=== PATIENT | female | born 1940 | race Caucasian/White ===

== ENCOUNTER 2016-09-10 16:58 | Emergency (ER) | payer MEDICARE, OTHER ==
[~2016-09-10] VITALS: Ht 170.2 cm; Wt 88.0 kg
[~2016-09-10 16:58] MED LIST: ALPR2TAB3 PO; CARV6.252 PO; ENOX80P SQ; FURO1TAB93 PO; GABA300C3 PO; GLYB2.5T3 PO; LEVA250T PO; LOSA100T PO; POTA-243 PO; WARF-60 PO; Z.0.OXYGEN INH
[2016-09-10 17:01] VITALS: BP 183/98; PULSE 85; RESP 18; TEMP 97.6; O2SAT 95
[2016-09-10] MEDS ORDERED: ZOCO40TA PO (17:30)
[2016-09-10] MEDS ORDERED: CALC0.25 PO (17:30)
[2016-09-10] MEDS ORDERED: METF500T PO (17:30)
[2016-09-10] MEDS ORDERED: VITA2000 PO (17:30)
[2016-09-10] MEDS ORDERED: GLYB5TAB3 PO (17:30)
[2016-09-10] MEDS ORDERED: ALLO300T2 PO (17:30)
[2016-09-10] MEDS ORDERED: FURO40TA PO (17:30)
[2016-09-10] MEDS ORDERED: WARF-60 PO (17:30)
[2016-09-10] MEDS ORDERED: LOSA50TA PO (17:30)
[2016-09-10] MEDS ORDERED: CARV12.52 PO (17:30)
[2016-09-10] MEDS ORDERED: WARF-23 PO (17:30)
[2016-09-10] MEDS ORDERED: LISI40TA PO (17:30)
[2016-09-10] MEDS ORDERED: K-TA10TA PO (17:30)
--- NOTE | 2016-09-10 17:55 | RADHPO ---
EXAM DATE/TIME: 09/10/2016 17:44 [facility] COMPARISON: No previous studies available for comparison. INDICATIONS : Patient states no known injury. Swelling across knuckles and posterior aspect of right hand. Pain in entire third digit. MEDICAL HISTORY : Chronic obstructive pulmonary disease. SURGICAL HISTORY : Pacemaker. Valve replacement ENCOUNTER: Initial ACUITY: 1 week PAIN SCORE: 10/10 LOCATION: Right Hand, Third digit. FINDINGS: There are degenerative arthritic changes involving the interphalangeal joints and to a less severe de gree involving the thumb carpal joint. There is soft tissue swelling involving the dorsum of the hand . No definite evidence of fracture, dislocation or bony destruction. CONCLUSION: Soft tissue swelling or arthritic changes. No definite acute bony process. Chris Lozada MD on September 10, 2016 at 17:52 Board Certified Radiologist. This report was verified electronically.
--- NOTE | 2016-09-10 17:58 | PD ---
HPI Chief Complaint: Pain: Acute or Chronic Time Seen by Provider: 17:25 Travel History International Travel<30 days: No Contact w/Intl Traveler<30days: No Traveled to known affect area: No History of Present Illness HPI 76-year-old female presents emergency department for evaluation of right hand pain and swelling. She reports that 6 days ago she woke up and noticed that her third IP joint was painful and swollen she reports the pain and swelling then progressed to the dorsal aspect of the hand. She denies injury to the extremity. She reports that her doctor's office put her on allopurinol for a presumed gouty attack. She reports that the pain and swelling has increased since Wednesday. She denies fever, chills, sweating, nausea/vomiting. PFSH Past Medical History Narrative Medical Significant for atrial fib on Coumadin, CHF, COPD, diabetes, hypertension Atrial Fibrillation: Yes Anxiety: Yes Heart Rhythm Problems: Yes Cardiovascular Problems: Yes Congestive Heart Failure: Yes COPD: Yes Diabetes: Yes Patient Takes Glucophage: Yes Diminished Hearing: No Immunizations Current: Yes Tetanus Vaccination: Unknown Influenza Vaccination: Yes ?: Not Menopausal: Yes Past Surgical History Cardiac Surgery: Yes (ABLATION PACEMAKER) Social History Alcohol Use: No Tobacco Use: No Substance Use: No Allergies-Medications (Allergen,Severity, Reaction): Uncoded Allergies: STEROIDS (Adverse Reaction, Unknown, 12/22/15) CRYING Reported Meds & Prescriptions Reported Meds & Active Scripts Active Reported Losartan (Losartan Potassium) 50 Mg Tab 50 Mg PO DAILY Carvedilol 12.5 Mg Tab 12.5 Mg PO BID Zocor (Simvastatin) 40 Mg Tab 40 Mg PO DAILY Warfarin 5 Mg Tab 5 Mg PO ,, Warfarin 6 Mg Tab 6 Mg PO ,,WED, Furosemide 40 Mg Tab 40 Mg PO DAILY Lisinopril 40 Mg Tab 40 Mg PO DAILY Metformin (Metformin HCl) 500 Mg Tab 500 Mg PO BIDPC With meals Glyburide 5 Mg Tab 5 Mg PO DAILY Take with meals at the same time each day Vitamin D3 (Cholecalciferol) 2,000 Unit Cap 2,000 Units PO DAILY Calcitriol 0.25 Mcg Cap 0.25 Mcg PO DAILY K-Tab (Potassium Chloride) 10 Meq Tab 10 Meq PO BID Allopurinol 300 Mg Tab 300 Mg PO DAILY Review of Systems Except as stated in HPI: all other systems reviewed are Neg Physical Exam Narrative GENERAL: Alert, well-nourished, well-appearing elderly female SKIN: Focused skin assessment warm/dry. HEAD: Atraumatic. Normocephalic. EYES: Pupils equal and round. No scleral icterus. No injection or drainage. ENT: No nasal bleeding or discharge. Mucous membranes pink and moist. NECK: Trachea midline. No JVD. CARDIOVASCULAR: Regular rate and rhythm. No murmur appreciated. RESPIRATORY: No accessory muscle use. Clear to auscultation. Breath sounds equal bilaterally. GASTROINTESTINAL: Abdomen soft, non-tender, nondistended. Hepatic and splenic margins not palpable. MUSCULOSKELETAL: No obvious deformities. No clubbing. No cyanosis. No edema. EXTREMITIES: Right hand: Notable soft tissue swelling the dorsal aspect of the right hand over the MCP joints mild erythema. Notable swelling and erythema of the third IP joint. NEUROLOGICAL: Awake and alert. No obvious cranial nerve deficits. Motor grossly within normal limits. Normal speech. PSYCHIATRIC: Appropriate mood and affect; insight and judgment normal. Data Data Last Documented VS Vital Signs Date Time Temp Pulse Resp B/P Pulse Ox O2 Delivery O2 Flow Rate FiO2 09/10/16 17:01 97.6 85 18 183/98 95 Orders Hand, Complete ([id number]) (09/10/16 ) Basic Metabolic Panel (Bmp) (09/10/16 18:19) Complete Blood Count With Diff (09/10/16 18:19) Blood Culture (09/10/16 18:19) Iv Access Insert/Monitor (09/10/16 18:19) Uric Acid (09/10/16 18:19) Labs Laboratory Tests Test 09/10/16 19:05 White Blood Count 8.2 TH/MM3 Red Blood Count 3.97 MIL/MM3 Hemoglobin 11.4 GM/DL Hematocrit 34.5 % Mean Corpuscular Volume 86.9 FL Mean Corpuscular Hemoglobin 28.8 PG Mean Corpuscular Hemoglobin 33.1 % Concent Red Cell Distribution Width 14.2 % Platelet Count 211 TH/MM3 Mean Platelet Volume 8.2 FL Neutrophils (%) (Auto) 52.3 % Lymphocytes (%) (Auto) 29.8 % Monocytes (%) (Auto) 9.8 % Eosinophils (%) (Auto) 7.4 % Basophils (%) (Auto) 0.7 % Neutrophils # (Auto) 4.3 TH/MM3 Lymphocytes # (Auto) 2.4 TH/MM3 Monocytes # (Auto) 0.8 TH/MM3 Eosinophils # (Auto) 0.6 TH/MM3 Basophils # (Auto) 0.1 TH/MM3 CBC Comment DIFF FINAL Differential Comment Sodium Level 144 MEQ/L Potassium Level 4.2 MEQ/L Chloride Level 108 MEQ/L Carbon Dioxide Level 27.3 MEQ/L Anion Gap 9 MEQ/L Blood Urea Nitrogen 30 MG/DL Creatinine 1.50 MG/DL Estimat Glomerular Filtration 34 ML/MIN Rate Random Glucose 124 MG/DL Calcium Level 8.8 MG/DL MDM Medical Decision Making Medical Screen Exam Complete: Yes Emergency Medical Condition: Yes Medical Record Reviewed: Yes Differential Diagnosis Gout, pseudogout, septic arthritis Narrative Course 76-year-old female presents emergency department for evaluation of right hand pain and swelling. She reports that 6 days ago she noticed pain and swelling of her right third IP joint. She denies any injury. Since that time the pain and swelling has increased despite being started on allopurinol by her PCP 4 days ago. She denies fever, chills, sweats. IV established, labs pending, x- ray pending. X-ray of left hand: No acute fracture/dislocation/foreign body. Arthritic changes noted. CBC: WBCs 8.2 BMP: Glucose 124, creatinine 1.5 this level is down from 1.9 on 12/23/15 known history of chronic kidney disease Given the patient's labs and absence of fever or other signs of systemic infection is believed that this is gout and not an infectious process. Patient is allergic to steroids and unable to take NSAIDs due to chronic kidney disease therefore patient will be instructed to discontinue allopurinol and given prescription for Ultram. She is to follow-up with her primary doctor for recheck in one to 2 days. Return to the emergency department if she develops new or worsening symptoms. Patient agreement to plan. Diagnosis Primary Impression: Gout Qualified Code: M10.9 - Acute gout of right hand, unspecified cause Referrals: Primary Care Physician Patient Instructions: General Instructions, Gout (ED) Additional Instructions: Take the Ultram as needed for pain. Discontinue the allopurinol. Make an appointment for follow-up with her doctor in 1-2 days. Turn to the emergency department a few develop new or worsening symptoms. Scripts Tramadol (Ultram)50 Mg Tab50 Mg PO Q6H PRN (PAIN) #12 TAB Ref 0 Prov:Aylin Lorenzo 09/10/16 Disposition: 01 DISCHARGE HOME Condition: Stable Aylin Lorenzo Sep 10, 2016 17:58
[2016-09-10 19:18] LABS: AUTOMATED NEUTROPHIL # 4.3 TH/MM3 (1.8-7.7); BASOPHIL # 0.1 TH/MM3 (0-0.2); BASOPHIL % 0.7 % (0.0-2.0); EOSINOPHIL # 0.6 TH/MM3 (0-0.4); EOSINOPHIL % 7.4 % (0.0-4.0); HEMATOCRIT 34.5 % (35.0-46.0); HEMO FLAGS DIFF FINAL; LYMPH % 29.8 % (9.0-44.0); LYMPHOCYTE # 2.4 TH/MM3 (1.0-4.8); MEAN CELL VOLUME 86.9 FL (80.0-100.0); MEAN CORPUSCULAR HEMOGLOBIN 28.8 PG (27.0-34.0); MEAN CORPUSCULAR HGB CONC 33.1 % (32.0-36.0); MONO % 9.8 % (0.0-8.0); NEUT % 52.3 % (16.0-70.0); PLATELET COUNT 211 TH/MM3 (150-450); RED BLOOD COUNT 3.97 MIL/MM3 (4.00-5.30); RED CELL DISTRIBUTION WIDTH 14.2 % (11.6-17.2); WHITE BLOOD COUNT 8.2 TH/MM3 (4.0-11.0)
[2016-09-10 19:27] LABS: POTASSIUM 4.2 MEQ/L (3.5-5.1)
[2016-09-10 19:30] LABS: BICARBONATE 27.3 MEQ/L (21.0-32.0)
[2016-09-10] MEDS ORDERED: ULTR50TA5 PO (19:55)
[2016-09-10 20:30] LABS: URIC ACID 6.3 MG/DL (2.6-6.0)
== END 2016-09-10 20:15 | disposition home or self-care (01) ==
LOC: PHEFT 16:58
DX: M10.9 Gout, unspecified (principal); I10 Essential (primary) hypertension; I50.9 Heart failure, unspecified; E11.9 Type 2 diabetes mellitus without complications; Z79.84 Long term (current) use of oral hypoglycemic drugs
CPT/HCPCS: 73130; 80048; 84550; 85025; 87040; 99284

== ENCOUNTER 2017-01-16 21:48 | Inpatient (IN) | payer OTHER, MEDICARE ==
[~2017-01-16] VITALS: Ht 167.6 cm; Wt 89.4 kg
[2017-01-16 21:15] VITALS: PULSE 94
[~2017-01-16 21:48] MED LIST changes: -ALPR2TAB3 PO; +CALC0.25 PO; +CARV12.5 PO; -CARV6.252 PO; +COZA50TA PO; -ENOX80P SQ; -FURO1TAB93 PO; -GABA300C3 PO; -GLYB2.5T3 PO; +GLYB5TAB3 PO; +HYDR-3800 PO; -LEVA250T PO; -LOSA100T PO; +METF500T PO; -POTA-243 PO; +VITA2000 PO; +WARF-23 PO; -Z.0.OXYGEN INH; +ZOCO40TA PO
[2017-01-16 21:55] VITALS: BP 163/72; PULSE 87; RESP 20; TEMP 98.8; O2SAT 93
[2017-01-16 23:10] VITALS: BP 147/71; PULSE 88; RESP 18; O2SAT 92
[2017-01-16] MEDS ORDERED: FURO20TA PO (23:18)
[2017-01-16] MEDS ORDERED: POTA10CA PO (23:18)
[2017-01-16] MEDS ORDERED: SODIUM CHLOR 0.9% 1000 ML INJ 1,000 ML IV SCH (23:37)
[2017-01-16] MEDS ORDERED: ONDANSETRON HCL 4 MG/2 ML VIAL IVP ONE (23:45)
[2017-01-16] MEDS ORDERED: SODIUM CHLORIDE 0.9% FLUSH 10 ML FLUSH IV FLUSH PRN (23:45)
--- NOTE | 2017-01-16 23:51 | PD ---
HPI Chief Complaint: GI Complaint Time Seen by Provider: 23:37 Travel History International Travel<30 days: No Contact w/Intl Traveler<30days: No Traveled to known affect area: No History of Present Illness HPI The patient is a 77-year-old female that complains of nausea, vomiting and diarrhea this evening. She also has some slight bilateral lower quadrant abdominal pain. The patient states she still has her appendix and gallbladder. She also states she had a fever today of 99.8. She takes Coumadin for atrial fibrillation. PFSH Past Medical History Hx Anticoagulant Therapy: Yes Atrial Fibrillation: Yes Anxiety: Yes Heart Rhythm Problems: Yes Congestive Heart Failure: Yes COPD: Yes Diabetes: Yes Patient Takes Glucophage: No Diminished Hearing: No Hypertension: Yes Respiratory: Yes (COPD) Immunizations Current: Yes Menopausal: Yes Past Surgical History Cardiac Surgery: Yes (ABLATION PACEMAKER) Coronary Artery Bypass Graft: Yes Pacemaker: Yes Valve Replacement: Yes Social History Alcohol Use: No Tobacco Use: No Substance Use: No Allergies-Medications (Allergen,Severity, Reaction): Uncoded Allergies: STEROIDS (Adverse Reaction, Unknown, 12/22/15) CRYING Reported Meds & Prescriptions Reported Meds & Active Scripts Active Cozaar (Losartan Potassium) 50 Mg Tab 100 Mg PO DAILY Hydralazine HCl 50 Mg Tablet 50 Mg PO Q6HR Coreg (Carvedilol) 12.5 Mg Tab 25 Mg PO BID Reported Potassium Chloride ER (Potassium Chloride) 10 Meq Cap 10 Meq PO DAILY Furosemide 20 Mg Tab 20 Mg PO DAILY Zocor (Simvastatin) 40 Mg Tab 40 Mg PO DAILY Warfarin 5 Mg Tab 5 Mg PO ,, Warfarin 6 Mg Tab 6 Mg PO W,,WED, Metformin (Metformin HCl) 500 Mg Tab 500 Mg PO BIDPC With meals Glyburide 5 Mg Tab 5 Mg PO DAILY Take with meals at the same time each day Vitamin D3 (Cholecalciferol) 2,000 Unit Cap 2,000 Units PO DAILY Calcitriol 0.25 Mcg Cap 0.25 Mcg PO DAILY Review of Systems Except as stated in HPI: all other systems reviewed are Neg Physical Exam Narrative GENERAL: The patient is alert, oriented 3 and slight apparent distress with her abdominal discomfort. Her vital signs show blood pressure 147/71 and oximetry 92% but otherwise normal. SKIN: Focused skin assessment warm/dry. HEAD: Atraumatic. Normocephalic. EYES: Pupils equal and round. No scleral icterus. No injection or drainage. ENT: No nasal bleeding or discharge. Mucous membranes pink and moist. NECK: Trachea midline. No JVD. CARDIOVASCULAR: Regular rate and rhythm. No murmur appreciated. RESPIRATORY: No accessory muscle use. Clear to auscultation. Breath sounds equal bilaterally. GASTROINTESTINAL: Abdomen soft, with slight discomfort to direct palpation in the midline epigastrium and bilateral lower quadrants. The abdomen is nondistended. Hepatic and splenic margins not palpable. No guarding or rebound is present. MUSCULOSKELETAL: No obvious deformities. No clubbing. No cyanosis. No edema. NEUROLOGICAL: Awake and alert. No obvious cranial nerve deficits. Motor grossly within normal limits. Normal speech. PSYCHIATRIC: Appropriate mood and affect; insight and judgment normal. Data Data Last Documented VS Vital Signs Date Time Temp Pulse Resp B/P (MAP) Pulse Ox O2 Delivery O2 Flow Rate FiO2 01/17/17 02:27 75 16 121/62 (81) 95 Room Air 01/16/17 21:55 98.8 Orders Orders Complete Blood Count With Diff (01/16/17 23:37) Comprehensive Metabolic Panel (01/16/17 23:37) Lipase (01/16/17 23:37) Urinalysis - C+S If Indicated (01/16/17 23:37) Iv Access Insert/Monitor (01/16/17 23:37) Ecg Monitoring (01/16/17 23:37) Oximetry (01/16/17 23:37) Ondansetron Inj (Zofran Inj) (01/16/17 23:45) Sodium Chlor 0.9% 1000 Ml Inj (Ns 1000 M (01/16/17 23:37) Sodium Chloride 0.9% Flush (Ns Flush) (01/16/17 23:45) Prothrombin Time / Inr (Pt) (01/16/17 23:37) Act Partial Throm Time (Ptt) (01/16/17 23:37) Urine Culture (01/17/17 00:05) Ct Abd/Pel W/O Iv Contrast (01/17/17 01:46) Levofloxacin 500 Mg Premix Inj (Levaquin (01/17/17 02:45) Metronidazole 500 Mg Inj (Flagyl 500 Mg (01/17/17 02:45) Bedside Glucose MARISELA.CSUGAR (01/17/17 02:53) Blood Glucose Goal (Criteria) (01/17/17 02:53) Hypoglycemia 70 Mg/Dl Or < (01/17/17 02:53) Notify Dr: Other (01/17/17 02:53) Dextrose 50% In Ricci (Vial) Inj (D50w (Vi (01/17/17 03:00) Glucagon Inj (Glucagon Inj) (01/17/17 03:00) Insulin Aspart Supplemtl Scale (Novolog (01/17/17 08:00) Admit To Inpatient (01/17/17 ) Vital Signs (Adult) Q4H (01/17/17 02:53) Activity Oob Ad Cristela (01/17/17 02:53) Intake + Output MARISELA.QSHIFT (01/17/17 02:53) Diet 1800 Ada Cons Carb (01/17/17 Breakfast) Sodium Chlor 0.9% 1000 Ml Inj (Ns 1000 M (01/17/17 02:53) Sodium Chloride 0.9% Flush (Ns Flush) (01/17/17 03:00) Sodium Chloride 0.9% Flush (Ns Flush) (01/17/17 09:00) Ondansetron Inj (Zofran Inj) (01/17/17 03:00) Comprehensive Metabolic Panel (01/18/17 06:00) Complete Blood Count With Diff (01/18/17 06:00) Prothrombin Time / Inr (Pt) (01/18/17 06:00) Pharmacologic Contraindication (01/17/17 02:53) Acetaminophen (Tylenol) (01/17/17 03:00) Morphine Inj (Morphine Inj) (01/17/17 03:00) Oxycodone (Roxicodone) (01/17/17 03:00) Docusate Sodium-Senna (Desi-Colace) (01/17/17 09:00) Magnesium Hydroxide Liq (Milk Of Magnesi (01/17/17 03:00) Sennosides (Senokot) (01/17/17 03:00) Bisacodyl Supp (Dulcolax Supp) (01/17/17 03:00) Lactulose Liq (Lactulose Liq) (01/17/17 03:00) Inpatient Certification (01/17/17 ) Piperacil-Tazo 2.25 Gm Premix (Zosyn 2.2 (01/17/17 09:00) Calcitriol (Rocaltrol) (01/17/17 09:00) Carvedilol (Coreg) (01/17/17 09:00) Hydralazine (Apresoline) (01/17/17 06:00) Warfarin (Coumadin) (01/17/17 16:00) Warfarin (Coumadin) (01/20/17 16:00) (Nf) Simvastatin (Zocor) (01/17/17 09:00) Admit Order (Ed Use Only) (01/17/17 03:01) Labs Laboratory Tests Test 01/16/17 23:53 01/17/17 00:05 White Blood Count 13.8 TH/MM3 Red Blood Count 4.09 MIL/MM3 Hemoglobin 11.3 GM/DL Hematocrit 34.4 % Mean Corpuscular Volume 84.1 FL Mean Corpuscular Hemoglobin 27.7 PG Mean Corpuscular Hemoglobin Concent 33.0 % Red Cell Distribution Width 15.0 % Platelet Count 196 TH/MM3 Mean Platelet Volume 8.0 FL Neutrophils (%) (Auto) 79.5 % Lymphocytes (%) (Auto) 14.6 % Monocytes (%) (Auto) 4.7 % Eosinophils (%) (Auto) 0.6 % Basophils (%) (Auto) 0.6 % Neutrophils # (Auto) 11.0 TH/MM3 Lymphocytes # (Auto) 2.0 TH/MM3 Monocytes # (Auto) 0.6 TH/MM3 Eosinophils # (Auto) 0.1 TH/MM3 Basophils # (Auto) 0.1 TH/MM3 CBC Comment DIFF FINAL Differential Comment Prothrombin Time 17.8 SEC Prothromb Time International Ratio 1.6 RATIO Activated Partial Thromboplast Time 32.0 SEC Blood Urea Nitrogen 51 MG/DL Creatinine 2.00 MG/DL Random Glucose 172 MG/DL Total Protein 8.0 GM/DL Albumin 4.0 GM/DL Calcium Level 9.2 MG/DL Alkaline Phosphatase 55 U/L Aspartate Amino Transf (AST/SGOT) 19 U/L Alanine Aminotransferase (ALT/SGPT) 23 U/L Total Bilirubin 0.6 MG/DL Sodium Level 136 MEQ/L Potassium Level 5.0 MEQ/L Chloride Level 103 MEQ/L Carbon Dioxide Level 23.9 MEQ/L Anion Gap 9 MEQ/L Estimat Glomerular Filtration Rate 24 ML/MIN Lipase 115 U/L Urine Collection Type VOIDED Urine Color STRAW Urine Turbidity SLIGHT Urine pH 5.0 Urine Specific [place] 1.015 Urine Protein TRACE mg/dL Urine Glucose (UA) NEG mg/dL Urine Ketones NEG mg/dL Urine Occult Blood NEG Urine Nitrite POS Urine Bilirubin NEG Urine Leukocyte Esterase MOD Urine WBC 20-24 /hpf Urine WBC Clumps MOD Urine Squamous Epithelial Cells 0-3 /hpf Urine Bacteria MANY /hpf Microscopic Urinalysis Comment CULTURE INDICATED MDM Medical Decision Making Medical Screen Exam Complete: Yes Emergency Medical Condition: Yes Medical Record Reviewed: Yes Interpretation(s) The CBC shows a white count of 13,800 with a hemoglobin of 11.3 and hematocrit of 34.4. The complete metabolic profile shows a BUN of 51, creatinine of 2.0 with glucose 172 and GFR of 24 but is otherwise unremarkable. The lipase is normal. The urine shows slight turbidity, trace protein, positive nitrite, moderate leukocyte esterase with 20-24 white cells and moderate white cell clumping's and many bacteria and culture is indicated. The ProTime shows 17.8 with an APTT of 32.0 [address] 1[address]6. The CT abdomen/pelvis without contrast shows suspected diverticulitis/colitis involving the sigmoid colon. Also shows a small gallstone in renal cyst and suspected tiny nonobstructing right renal stone. Differential Diagnosis Pyelonephritis, cystitis, colitis, acute appendicitis, diverticulitis, electrolyte disorder, renal insufficiency, anemia Narrative Course The patient appears to have diverticulitis/colitis. She is very uncomfortable with her cramping and her white count is elevated. She also has a urinary tract infection. The same drugs we used for the urinary tract infection will treat her colitis/diverticulitis. Plan: The patient will be admitted to the [facility] service, Dr. Sherman. Physician Communication Physician Communication I discussed the patient with Dr. Sherman, the patient will be admitted to her. Diagnosis Primary Impression: Colitis Additional Impression: Diverticulitis large intestine Admitting Information Admitting Physician Requests: Admit Alec Case MD Jan 16, 2017 23:51
[2017-01-17] VITALS (10 sets, daily range): BP systolic 120–150; BP diastolic 60–106; PULSE 67–94; RESP 16–20; TEMP 97.4–98.1; O2SAT 92–95
[2017-01-17 00:09] LABS: BASOPHIL # 0.1 TH/MM3 (0-0.2); BASOPHIL % 0.6 % (0.0-2.0); EOSINOPHIL # 0.1 TH/MM3 (0-0.4); EOSINOPHIL % 0.6 % (0.0-4.0); HEMATOCRIT 34.4 % (35.0-46.0); LYMPH % 14.6 % (9.0-44.0); MEAN CELL VOLUME 84.1 FL (80.0-100.0); MEAN CORPUSCULAR HEMOGLOBIN 27.7 PG (27.0-34.0); MONO % 4.7 % (0.0-8.0); NEUT % 79.5 % (16.0-70.0); PLATELET COUNT 196 TH/MM3 (150-450); RED BLOOD COUNT 4.09 MIL/MM3 (4.00-5.30); WHITE BLOOD COUNT 13.8 TH/MM3 (4.0-11.0)
[2017-01-17 00:18] LABS: BLOOD, URINE NEG (NEG); GLUCOSE,URINE NEG (NEG); KETONE, URINE NEG (NEG); NITRITE,URINE POS (NEG)
[2017-01-17 00:20] LABS: HEMO FLAGS DIFF FINAL
[2017-01-17 00:27] LABS: INTERNATIONAL NORMALIZED RATIO 1.6 RATIO; PROTHROMBIN TIME - PATIENT 17.8 SEC (9.8-11.6)
[2017-01-17 00:42] LABS: CHLORIDE 103 MEQ/L (98-107); SODIUM (NA) 136 MEQ/L (136-145)
[2017-01-17 00:46] LABS: ANION GAP 9 MEQ/L (5-15); BICARBONATE 23.9 MEQ/L (21.0-32.0); BLOOD UREA NITROGEN 51 MG/DL (7-18)
[2017-01-17 00:46] LABS: METHOD OF COLLECTION VOIDED; URINE COLOR STRAW (YELLW/STRAW)
[2017-01-17 00:47] LABS: BACTERIA, URINE MANY /hpf; COMMENT (UR) CULTURE INDICATED; CULTURE IF INDICATED CULTURE INDICATED; SQUAMOUS EPITHELIAL CELL URINE 0-3 /hpf (0-5)
[2017-01-17 01:05] LABS: GLOMERULAR FILTRATION RATE 24 ML/MIN (>89)
[2017-01-17 01:06] LABS: ALKALINE PHOSPHATASE 55 U/L (45-117); ALT (GPT) 23 U/L (10-53); AST (GOT) 19 U/L (15-37); TOTAL BILIRUBIN ADULT 0.6 MG/DL (0.2-1.0)
--- NOTE | 2017-01-17 02:36 | RADRPT ---
EXAM DATE/TIME: 01/17/2017 01:52 [facility] COMPARISON: No previous studies available for comparison. INDICATIONS : Nausea and vomiting. Abdominal pain. ORAL CONTRAST: No oral contrast ingested. RADIATION DOSE: 22.72 CTDIvol (mGy) MEDICAL HISTORY : Chronic obstructive pulmonary disease. Congestive heart failure. Diabetes mellitus type 2.HTN SURGICAL HISTORY : CABG Pacemaker. ENCOUNTER: Initial ACUITY: 2 weeks PAIN SCALE: 4/10 LOCATION: abdomen TECHNIQUE: Volumetric scanning of the abdomen and pelvis was performed. Using automated exposure control and ad justment of the mA and/or kV according to patient size, radiation dose was kept as low as reasonably achievable to obtain optimal diagnostic quality images. DICOM format image data is available electro nically for review and comparison. FINDINGS: LOWER CHEST: The visualized lower lungs are clear. There is a pacemaker in place. The patient is status post carpio otomy. LIVER: Homogeneous density without lesion. There is no dilation of the biliary tree. There is a small 6 mm calcified gallstone. SPLEEN: Normal size without lesion. PANCREAS: Within normal limits. KIDNEYS: There is a 3.9 cm presumed cyst at the superior right kidney. There is a smaller 1 cm suspected cyst at the lateral right upper kidney. There is a possible tiny 1 mm nonobstructing right renal stone. Th is is seen on the coronal images. No hydronephrosis is seen. ADRENAL GLANDS: Within normal limits. VASCULAR: There is no aortic aneurysm. Scattered atherosclerotic calcifications are seen. BOWEL/MESENTERY: There are colonic diverticula being most numerous in the sigmoid region. There is mild inflammatory c hange surrounding the sigmoid colon. ABDOMINAL WALL: There is a small umbilical hernia containing mesenteric fat. RETROPERITONEUM: There is no lymphadenopathy. BLADDER: No wall thickening or mass. REPRODUCTIVE: Within normal limits. INGUINAL: There is no lymphadenopathy or hernia. MUSCULOSKELETAL: There is degenerative change in the lumbar spine. CONCLUSION: 1. Suspected diverticulitis/colitis involving the sigmoid colon. 2. Small gallstone. 3. Renal cysts and suspected tiny nonobstructing right renal stone. Chris Gracia MD on January 17, 2017 at 2:25 Board Certified Radiologist. This report was verified electronically.
[2017-01-17] MEDS ORDERED: LEVOFLOXACIN 500 MG PREMIX INJ 100 ML IV ONE (02:45)
[2017-01-17] MEDS ORDERED: metroNIDAZOLE 500 MG INJ 100 ML IV ONE (02:45)
[2017-01-17] MEDS ORDERED: DEXTROSE 50% IN WATER 50 ML VIAL(D50) IV PUSH PRN (03:00)
[2017-01-17] MEDS ORDERED: ACETAMINOPHEN 325 MG TAB PO PRN (03:00)
[2017-01-17] MEDS ORDERED: MAGNESIUM HYDROXIDE SUSP 30 ML CUP PO PRN (03:00)
[2017-01-17] MEDS ORDERED: SODIUM CHLORIDE 0.9% FLUSH 10 ML FLUSH IV FLUSH PRN (03:00)
[2017-01-17] MEDS ORDERED: ONDANSETRON HCL 4 MG/2 ML VIAL IVP PRN (03:00)
[2017-01-17] MEDS ORDERED: GLUCAGON 1 MG/ML VIAL OTHER PRN (03:00)
[2017-01-17] MEDS ORDERED: MORPHINE SULFATE 4 MG/ML INJ IV PUSH PRN (03:00)
[2017-01-17] MEDS ORDERED: BISACODYL 10 MG SUPP RECTAL PRN (03:00)
[2017-01-17] MEDS ORDERED: SENNOSIDES 8.6 MG TAB PO PRN (03:00)
[2017-01-17] MEDS ORDERED: LACTULOSE SYRUP 20 GM/30 ML CUP PO PRN (03:00)
[2017-01-17] MEDS: SODIUM CHLOR 0.9% 1000 ML INJ 1,000 ML IV SCH ×2 (03:56→13:20)
[2017-01-17] MEDS: hydrALAZINE HCL 50 MG TAB PO SCH ×3 (06:04→18:03)
[2017-01-17] MEDS: INSULIN ASPART SUPPLEMENTAL SCALE SQ SCH ×4 (08:00→21:00)
[2017-01-17] MEDS: DOCUSATE SODIUM 50 MG/SENNA 8.6 MG TAB PO SCH ×3 (09:00→21:32)
[2017-01-17] MEDS: SODIUM CHLORIDE 0.9% FLUSH 10 ML FLUSH IV FLUSH SCH ×2 (09:00→21:26)
[2017-01-17] MEDS: CALCITRIOL 0.25 MCG CAP PO SCH (09:38)
[2017-01-17] MEDS: PRAVASTATIN SOD 40 MG TAB PO SCH (09:39)
[2017-01-17] MEDS: CARVEDILOL 12.5 MG TAB PO SCH ×2 (09:39→21:25)
[2017-01-17] MEDS: PIPERACIL-TAZO 2.25 GM PREMIX 50 ML IV SCH ×2 (10:38→16:43)
[2017-01-17 11:44] LABS: POTASSIUM 4.3 MEQ/L (3.5-5.1)
[2017-01-17 11:45] LABS: AUTOMATED NEUTROPHIL # 6.1 TH/MM3 (1.8-7.7); BASOPHIL % 0.5 % (0.0-2.0); EOSINOPHIL # 0.1 TH/MM3 (0-0.4); EOSINOPHIL % 0.7 % (0.0-4.0); HEMATOCRIT 31.1 % (35.0-46.0); HEMO FLAGS DIFF FINAL; LYMPH % 20.6 % (9.0-44.0); LYMPHOCYTE # 1.8 TH/MM3 (1.0-4.8); MEAN CELL VOLUME 84.3 FL (80.0-100.0); MEAN CORPUSCULAR HEMOGLOBIN 27.3 PG (27.0-34.0); MEAN CORPUSCULAR HGB CONC 32.4 % (32.0-36.0); MONO % 9.5 % (0.0-8.0); NEUT % 68.7 % (16.0-70.0); PLATELET COUNT 183 TH/MM3 (150-450); RED BLOOD COUNT 3.69 MIL/MM3 (4.00-5.30); RED CELL DISTRIBUTION WIDTH 15.1 % (11.6-17.2); WHITE BLOOD COUNT 8.8 TH/MM3 (4.0-11.0)
[2017-01-17 11:47] LABS: BICARBONATE 27.7 MEQ/L (21.0-32.0); MAGNESIUM 2.3 MG/DL (1.5-2.5)
[2017-01-17] MEDS: CHOLECALCIFEROL (VIT D3) 1000 UNIT TAB PO SCH (13:20)
[2017-01-17] MEDS: LOSARTAN 50 MG TAB PO SCH (13:20)
[2017-01-17] MEDS: FUROSEMIDE 20 MG TAB PO SCH (13:21)
--- NOTE | 2017-01-17 13:57 | HHI.HP ---
[facility] [place] [facility] Primary Care Physician Non-Staff Admission Diagnosis colitis, diverticulitis Diagnoses: (1) Sepsis Diagnosis: Principal (2) Nausea & vomiting Diagnosis: Principal (3) Diarrhea in adult patient Diagnosis: Principal (4) Abdominal pain Diagnosis: Principal (5) Diverticulitis large intestine Diagnosis: Principal (6) Urinary tract infection Diagnosis: Principal Chief Complaint: Abdominal pain with nausea, vomiting, diarrhea Travel History International Travel<30 Days: No Contact w/Intl Traveler <30 Da: No Traveled to Known Affected Are: No Sepsis Criteria SIRS Criteria (2 or more): Heart rate over 90, WBC > 78244, < 4000 or > 10% bands Sepsis Criteria (SIRS+source): Infect source susp/known History of Present Illness Written by Gino Case, acting as scribe for Dr. Echols on 01/17/17 at 13:44. 77-year-old female with known history of hypertension, congestive heart failure, atrial fibrillation, diabetes, chronic obstructive pulmonary disease, coronary artery disease status post CABG, history of tobacco use who presented to the hospital because of nausea, vomiting, diarrhea, chills. Patient states that she was in normal state of health until 2 days ago when she started developing chills. She states that she was very cold and could not get warm. She then started developing some nausea, vomiting, diarrhea. She states that she was having watery brown diarrhea that was severely malodorous. Patient was having 4-5 bowel movements daily. She denied any hematochezia, melena. She indicates that she has had abdominal pain that's been cramping for over the last month and progressively got worse. She states that the cramping pain is in her lower abdomen. She had started using Slim fast in order to lose weight, she contributed to cramping to the Slim fast. However she was treated for an infection of month ago with a Z-Aravind. patient's symptoms did not improve and she progressed got worse her son drove her to the hospital for evaluation. Patient had workup done emergency department and found to have criteria for sepsis. CT scan does show a suspected diverticulitis/colitis. Because of those reasons is recommended by the ER physician that the patient be admitted for further evaluation and management. Review of Systems Constitutional: COMPLAINS OF: Chills Gastrointestinal: COMPLAINS OF: Abdominal pain, Diarrhea, Nausea, Vomiting Except as stated in HPI: all other systems reviewed are Neg Past Family Social History Past Medical History Hypertension Coronary artery disease Diabetes Chronic obstructive pulmonary disease History of tobacco use Anxiety Congestive heart failure History of atrial fibrillation Past Surgical History Coronary bypass surgery Cardiac ablation Reported Medications Reported Meds & Active Scripts Active Cozaar (Losartan Potassium) 50 Mg Tab 100 Mg PO DAILY Hydralazine HCl 50 Mg Tablet 50 Mg PO Q6HR Coreg (Carvedilol) 12.5 Mg Tab 25 Mg PO BID Reported Potassium Chloride ER (Potassium Chloride) 10 Meq Cap 10 Meq PO DAILY Furosemide 20 Mg Tab 20 Mg PO DAILY Zocor (Simvastatin) 40 Mg Tab 40 Mg PO DAILY Warfarin 5 Mg Tab 5 Mg PO ,, Warfarin 6 Mg Tab 6 Mg PO W,,WED,SA Metformin (Metformin HCl) 500 Mg Tab 500 Mg PO BIDPC With meals Glyburide 5 Mg Tab 5 Mg PO DAILY Take with meals at the same time each day Vitamin D3 (Cholecalciferol) 2,000 Unit Cap 2,000 Units PO DAILY Calcitriol 0.25 Mcg Cap 0.25 Mcg PO DAILY Allergies: Uncoded Allergies: STEROIDS (Adverse Reaction, Unknown, 12/22/15) CRYING Family History Reviewed and significant for mother's side of the family having cancer, father side of the family having heart disease Social History Patient quit smoking 40 years ago, prior to that she smoked a pack a cigarettes a day for 25 years. Denies any alcohol or illicit drugs Physical Exam Vital Signs Vital Signs Date Time Temp Pulse Resp B/P (MAP) Pulse Ox O2 Delivery O2 Flow Rate FiO2 01/17/17 12:00 97.9 75 18 125/75 (92) 94 01/17/17 08:00 97.5 70 17 120/60 (80) 92 01/17/17 04:25 97.6 76 20 129/68 (88) 93 01/17/17 04:04 82 18 140/73 (95) 93 01/17/17 02:27 75 16 121/62 (81) 95 Room Air 01/17/17 01:16 76 16 128/60 (82) 95 Room Air 01/17/17 00:19 82 16 139/76 (97) 94 Room Air 01/16/17 23:10 18 01/16/17 23:10 88 18 147/71 (96) 92 Room Air 01/16/17 21:55 98.8 87 20 163/72 (102) 93 01/16/17 21:15 94 Physical Exam GENERAL: Well-developed, well-nourished, in no acute distress. alert and orientated HEENT: Head is normocephalic without any lesions or masses noted. Facial features are symmetric. Eyes: Extraocular muscles are intact. Conjunctivae were clear. Oropharyngeal: Pharynx without any erythema edema. Tongue is midline without deviation. Buccal mucosa is moist without any masses or lesions NECK: No JVD, no bruits are appreciated CARDIAC: Regular rhythm, regular rate. S1/S2 are heard. No murmurs gallops or rubs. LUNGS: Clear to auscultation bilaterally. No wheeze, rhonchi or rales. No use of accessory muscles on inspiration or expiration. ABDOMEN: Soft, mild bilateral lower quadrant tenderness. Nondistended. Bowel sounds diminished in all 4 quadrants. No organomegaly or masses. Negative rebound, negative guarding EXTREMITIES: No edema,No cyanosis or clubbing NEUROLOGY: Mood and affect appear appropriate. No facial droop, no slurred speech, tongue midline as appropriate. Laboratory Laboratory Tests Test 01/16/17 23:53 01/17/17 00:05 01/17/17 11:27 White Blood Count 13.8 8.8 Red Blood Count 4.09 3.69 Hemoglobin 11.3 10.1 Hematocrit 34.4 31.1 Mean Corpuscular Volume 84.1 84.3 Mean Corpuscular Hemoglobin 27.7 27.3 Mean Corpuscular Hemoglobin Concent 33.0 32.4 Red Cell Distribution Width 15.0 15.1 Platelet Count 196 183 Mean Platelet Volume 8.0 8.0 Neutrophils (%) (Auto) 79.5 68.7 Lymphocytes (%) (Auto) 14.6 20.6 Monocytes (%) (Auto) 4.7 9.5 Eosinophils (%) (Auto) 0.6 0.7 Basophils (%) (Auto) 0.6 0.5 Neutrophils # (Auto) 11.0 6.1 Lymphocytes # (Auto) 2.0 1.8 Monocytes # (Auto) 0.6 0.8 Eosinophils # (Auto) 0.1 0.1 Basophils # (Auto) 0.1 0.0 CBC Comment DIFF FINAL DIFF FINAL Differential Comment Prothrombin Time 17.8 Prothromb Time International Ratio 1.6 Activated Partial Thromboplast Time 32.0 Blood Urea Nitrogen 51 44 Creatinine 2.00 1.80 Random Glucose 172 172 Total Protein 8.0 Albumin 4.0 Calcium Level 9.2 8.4 Alkaline Phosphatase 55 Aspartate Amino Transf (AST/SGOT) 19 Alanine Aminotransferase (ALT/SGPT) 23 Total Bilirubin 0.6 Sodium Level 136 140 Potassium Level 5.0 4.3 Chloride Level 103 105 Carbon Dioxide Level 23.9 27.7 Anion Gap 9 7 Estimat Glomerular Filtration Rate 24 27 Lipase 115 Urine Collection Type VOIDED Urine Color STRAW Urine Turbidity SLIGHT Urine pH 5.0 Urine Specific [place] 1.015 Urine Protein TRACE Urine Glucose (UA) NEG Urine Ketones NEG Urine Occult Blood NEG Urine Nitrite POS Urine Bilirubin NEG Urine Leukocyte Esterase MOD Urine WBC 20-24 Urine WBC Clumps MOD Urine Squamous Epithelial Cells 0-3 Urine Bacteria MANY Microscopic Urinalysis Comment CULTURE INDICATED Magnesium Level 2.3 Date/Time Source Procedure Growth Status 01/17/17 00:05 Urine Random Urine Urine Culture Pending Received Result Diagram: 01/17/17 1127 01/17/17 1127 Imaging Last Impressions Abdomen/Pelvis CT 01/17/17 0146 Signed Impressions: Service Date/Time: Tuesday, January 17, 2017 01:52 - CONCLUSION: 1. Suspected diverticulitis/colitis involving the sigmoid colon. 2. Small gallstone. 3. Renal cysts and suspected tiny nonobstructing right renal stone. Chris Gracia MD Septic Shock Reassessment Heart: Regular rate and rhythm Lungs: Clear Skin: Warm, [place] Peripheral Pulses: Bounding Right Radial Bounding Left Radial Capillary Refill: Brisk, <2 seconds Caprini VTE Risk Assessment Caprini VTE Risk Assessment: Mod/High Risk (score >= 2) Caprini Risk Assessment Model Point Value = 1 Point Value = 2 Point Value = 3 Point Value = 5 Age 41-60 Minor surgery BMI > 25 kg/m2 Swollen legs Varicose veins or History of unexplained or recurrent spontaneous Oral contraceptives or hormone replacement Sepsis (< 1 month) Serious lung disease, including pneumonia (< 1 month) Abnormal pulmonary function Acute myocardial infarction Congestive heart failure (< 1 month) History of inflammatory bowel disease Medical patient at bed rest Age 61-74 Arthroscopic surgery Major open surgery (> 45 min) Laparoscopic surgery (> 45 min) Malignancy Confined to bed (> 72 hours) Immobilizing plaster cast Central venous access Age >= 75 History of VTE Family history of VTE Factor V Leiden Prothrombin [id number] Lupus anticoagulant Anticardiolipin antibodies Elevated serum homocysteine Heparin-induced thrombocytopenia Other congenital or acquired thrombophilia Stroke (< 1 month) Elective arthroplasty Hip, pelvis, or leg fracture Acute spinal cord injury (< 1 month) Prophylaxis Regimen Total Risk Factor Score Risk Level Prophylaxis Regimen 0-1 Low Early ambulation 2 Moderate Order ONE of the following: *Sequential Compression Device (SCD) *Heparin 5000 units SQ BID 3-4 Higher Order ONE of the following medications: *Heparin 5000 units SQ TID *Enoxaparin/Lovenox 40 mg SQ daily (WT < 150 kg, CrCl > 30 mL/min) *Enoxaparin/Lovenox 30 mg SQ daily (WT < 150 kg, CrCl > 10-29 mL/min) *Enoxaparin/Lovenox 30 mg SQ BID (WT < 150 kg, CrCl > 30 mL/min) AND/OR *Sequential Compression Device (SCD) 5 or more Highest Order ONE of the following medications: *Heparin 5000 units SQ TID (Preferred with Epidurals) *Enoxaparin/Lovenox 40 mg SQ daily (WT < 150 kg, CrCl > 30 mL/min) *Enoxaparin/Lovenox 30 mg SQ daily (WT < 150 kg, CrCl > 10-29 mL/min) *Enoxaparin/Lovenox 30 mg SQ BID (WT < 150 kg, CrCl > 30 mL/min) AND *Sequential Compression Device (SCD) Assessment and Plan Assessment and Plan Sepsis Patient criteria on admission with leukocytosis, tachycardia, colitis, urinary tract infection Patient was given dose of Levaquin/Flagyl in emergency department Patient continued on Zosyn Continue Flagyl Continue follow urine culture, obtain blood cultures Suspected colitis/diverticulitis Obtain stool studies for enteric pathogens, C. difficile, stool for WBCs Continue Flagyl, Zosyn Leukocytosis Trend Acute renal failure superimposed on chronic kidney disease stage III Likely secondary to nausea, vomiting, diarrhea Continue IV fluids Monitor renal functions Hypertension, chronic atrial fibrillation, chronic diastolic congestive heart failure Continue home medications Diabetes Accu-Cheks with sliding scale insulin DVT prevention Patient is on Coumadin This note was transcribed by rigoberto Case. I, Patrick Echols, personally performed the history, physical exam, and medical decision making; and confirmed the accuracy of information in the transcribed note. Authenticated by Patrick Echols on 2:45 PM on 01/17/17. I authorized all orders entered by Raulito Case at my discretion. I independently reviewed the CT scan and see no substantial stool retention that would be causing the patient 's pain. Physician Certification 2 Midnight Certification Type: Admission for Inpatient Services Order for Inpatient Services The services are ordered in accordance with Medicare regulations or non- Medicare payer requirements, as applicable. In the case of services not specified as inpatient-only, they are appropriately provided as inpatient services in accordance with the 2-midnight benchmark. Estimated LOS (days): 2 days is the estimated time the patient will need to remain in the hospital, assuming treatment plan goals are met and no additional complications. Post-Hospital Plan: Not yet determined Gino Case Jan 17, 2017 13:57 Patrick Echols MD Jan 17, 2017 14:51
[2017-01-17] MEDS: POTASSIUM CHLORIDE 10 MEQ CAP PO SCH (14:47)
[2017-01-17] MEDS: metroNIDAZOLE 500 MG INJ 100 ML IV SCH (14:48)
[2017-01-17] MEDS ORDERED: WARFARIN SOD 5 MG TAB PO SCH (16:00)
[2017-01-17 21:12] LABS: C. DIFF EPI 027 PRESUMPTIVE NEGATIVE (NEGATIVE)
[2017-01-18] MEDS: PIPERACIL-TAZO 2.25 GM PREMIX 50 ML IV SCH ×2 (00:11→03:29)
[2017-01-18] MEDS: hydrALAZINE HCL 50 MG TAB PO SCH ×3 (00:11→13:11)
[2017-01-18] MEDS: metroNIDAZOLE 500 MG INJ 100 ML IV SCH ×2 (00:12→05:36)
[2017-01-18 00:20] VITALS: BP 106/68; PULSE 70; RESP 16; TEMP 98; O2SAT 95
[2017-01-18] MEDS: SODIUM CHLOR 0.9% 1000 ML INJ 1,000 ML IV SCH ×2 (00:59→08:53)
[2017-01-18 06:51] LABS: AUTOMATED NEUTROPHIL # 3.7 TH/MM3 (1.8-7.7); BASOPHIL # 0.1 TH/MM3 (0-0.2); BASOPHIL % 0.8 % (0.0-2.0); EOSINOPHIL # 0.1 TH/MM3 (0-0.4); EOSINOPHIL % 2.3 % (0.0-4.0); HEMATOCRIT 31.3 % (35.0-46.0); HEMO FLAGS DIFF FINAL; LYMPH % 29.3 % (9.0-44.0); LYMPHOCYTE # 1.9 TH/MM3 (1.0-4.8); MEAN CELL VOLUME 84.3 FL (80.0-100.0); MEAN CORPUSCULAR HEMOGLOBIN 26.9 PG (27.0-34.0); MEAN CORPUSCULAR HGB CONC 31.8 % (32.0-36.0); MONO % 9.5 % (0.0-8.0); NEUT % 58.1 % (16.0-70.0); PLATELET COUNT 167 TH/MM3 (150-450); RED BLOOD COUNT 3.71 MIL/MM3 (4.00-5.30); RED CELL DISTRIBUTION WIDTH 15.3 % (11.6-17.2); WHITE BLOOD COUNT 6.4 TH/MM3 (4.0-11.0)
[2017-01-18 07:06] LABS: CHLORIDE 109 MEQ/L (98-107); POTASSIUM 4.4 MEQ/L (3.5-5.1); SODIUM (NA) 142 MEQ/L (136-145)
[2017-01-18 07:08] LABS: INTERNATIONAL NORMALIZED RATIO 1.6 RATIO; PROTHROMBIN TIME - PATIENT 17.9 SEC (9.8-11.6)
[2017-01-18 07:15] LABS: ANION GAP 9 MEQ/L (5-15); BICARBONATE 24.4 MEQ/L (21.0-32.0); BLOOD UREA NITROGEN 41 MG/DL (7-18); MAGNESIUM 2.4 MG/DL (1.5-2.5)
[2017-01-18 07:17] LABS: ALT (GPT) 17 U/L (10-53); AST (GOT) 13 U/L (15-37)
[2017-01-18 07:18] LABS: GLOMERULAR FILTRATION RATE 29 ML/MIN (>89)
[2017-01-18 07:19] LABS: TOTAL BILIRUBIN ADULT 0.6 MG/DL (0.2-1.0)
[2017-01-18 07:22] LABS: ALKALINE PHOSPHATASE 41 U/L (45-117)
[2017-01-18 08:00] VITALS: BP 169/98; PULSE 73; RESP 18; TEMP 97.2; O2SAT 95
[2017-01-18] MEDS: INSULIN ASPART SUPPLEMENTAL SCALE SQ SCH ×2 (08:00→12:00)
[2017-01-18] MEDS: SODIUM CHLORIDE 0.9% FLUSH 10 ML FLUSH IV FLUSH SCH (09:00)
[2017-01-18] MEDS: CHOLECALCIFEROL (VIT D3) 1000 UNIT TAB PO SCH (10:28)
[2017-01-18] MEDS: CARVEDILOL 12.5 MG TAB PO SCH (10:29)
[2017-01-18] MEDS: CALCITRIOL 0.25 MCG CAP PO SCH (10:29)
[2017-01-18] MEDS: FUROSEMIDE 20 MG TAB PO SCH (10:29)
[2017-01-18] MEDS: LOSARTAN 50 MG TAB PO SCH (10:29)
[2017-01-18] MEDS: PRAVASTATIN SOD 40 MG TAB PO SCH (10:30)
[2017-01-18] MEDS: POTASSIUM CHLORIDE 10 MEQ CAP PO SCH (10:30)
[2017-01-18] MEDS ORDERED: METR500T10 PO (11:55)
--- NOTE | 2017-01-18 11:57 | HHI.DCPOC ---
Discharge Care Plan Diagnosis: (1) C. difficile colitis Additional Problems Wash your hands with antibacterial soap (NOT HAND ACCOUNTS MANAGER) each time you use the restroom and before each time you eat or prepare meals for yourself or anyone else. Goals to Promote Your Health * To prevent worsening of your condition and complications * To maintain your health at the optimal level Directions to Meet Your Goals Take your medications as prescribed Follow your dietary instruction Follow activity as directed Keep your appointments as scheduled Take your immunizations and boosters as scheduled If your symptoms worsen call your PCP, if no PCP go to Urgent Care Center or Emergency Room Smoking is Dangerous to Your Health. Avoid second hand smoke Call the 24-hour hour crisis hotline for domestic abuse at Patrick Echols MD Jan 18, 2017 11:57
[2017-01-18 12:00] VITALS: BP 143/74; PULSE 69; RESP 20; TEMP 96.1; O2SAT 94
[2017-01-18] MEDS ORDERED: PROM12.54 PO (12:21)
--- NOTE | 2017-01-18 12:25 | HHI.DS ---
Discharge Summary Admission Date Jan 17, 2017 at 03:03 Discharge Date: Jan 18, 2017 Admitting Diagnosis colitis, diverticulitis (1) Sepsis ICD Code: A41.9 - Sepsis, unspecified organism Diagnosis: Principal Status: Resolved (2) Nausea & vomiting ICD Code: R11.2 - Nausea with vomiting, unspecified Diagnosis: Principal (3) Diarrhea in adult patient ICD Code: R19.7 - Diarrhea, unspecified Diagnosis: Principal (4) Abdominal pain ICD Code: R10.9 - Unspecified abdominal pain Diagnosis: Principal (5) C. difficile colitis ICD Code: A04.72 - Enterocolitis due to Clostridium difficile, not specified as recurrent Procedures none Brief History - From Admission Written by Gino Case, acting as scribe for Dr. Echols on 01/17/17 at 13:44. 77-year-old female with known history of hypertension, congestive heart failure, atrial fibrillation, diabetes, chronic obstructive pulmonary disease, coronary artery disease status post CABG, history of tobacco use who presented to the hospital because of nausea, vomiting, diarrhea, chills. Patient states that she was in normal state of health until 2 days ago when she started developing chills. She states that she was very cold and could not get warm. She then started developing some nausea, vomiting, diarrhea. She states that she was having watery brown diarrhea that was severely malodorous. Patient was having 4-5 bowel movements daily. She denied any hematochezia, melena. She indicates that she has had abdominal pain that's been cramping for over the last month and progressively got worse. She states that the cramping pain is in her lower abdomen. She had started using Slim fast in order to lose weight, she contributed to cramping to the Slim fast. However she was treated for an infection of month ago with a Z-Aravind. patient's symptoms did not improve and she progressed got worse her son drove her to the hospital for evaluation. Patient had workup done emergency department and found to have criteria for sepsis. CT scan does show a suspected diverticulitis/colitis. Because of those reasons is recommended by the ER physician that the patient be admitted for further evaluation and management. CBC/BMP: 01/18/17 0635 01/18/17 0635 Significant Findings Laboratory Tests Test 01/16/17 23:53 01/17/17 00:05 01/17/17 11:27 01/17/17 15:30 White Blood Count 13.8 TH/MM3 (4.0-11.0) Hemoglobin 11.3 GM/DL (11.6-15.3) 10.1 GM/DL (11.6-15.3) Hematocrit 34.4 % (35.0-46.0) 31.1 % (35.0-46.0) Neutrophils (%) (Auto) 79.5 % (16.0-70.0) Neutrophils # (Auto) 11.0 TH/MM3 (1.8-7.7) Prothrombin Time 17.8 SEC (9.8-11.6) Activated Partial Thromboplast Time 32.0 SEC (24.3-30.1) Blood Urea Nitrogen 51 MG/DL (7-18) 44 MG/DL (7-18) Creatinine 2.00 MG/DL (0.50-1.00) 1.80 MG/DL (0.50-1.00) Random Glucose 172 MG/DL (74-106) 172 MG/DL (74-106) Estimat Glomerular Filtration Rate 24 ML/MIN (>89) 27 ML/MIN (>89) Urine Nitrite POS (NEG) Urine Leukocyte Esterase MOD (NEG) Urine WBC 20-24 /hpf (0-5) Urine WBC Clumps MOD (NONE) Urine Bacteria MANY /hpf (NONE) Red Blood Count 3.69 MIL/MM3 (4.00-5.30) Monocytes (%) (Auto) 9.5 % (0.0-8.0) Calcium Level 8.4 MG/DL (8.5-10.1) Stool C. difficile Toxin (PCR) POSITIVE (NEGATIVE) Test 01/18/17 06:35 Red Blood Count 3.71 MIL/MM3 (4.00-5.30) Hemoglobin 9.9 GM/DL (11.6-15.3) Hematocrit 31.3 % (35.0-46.0) Mean Corpuscular Hemoglobin 26.9 PG (27.0-34.0) Mean Corpuscular Hemoglobin Concent 31.8 % (32.0-36.0) Monocytes (%) (Auto) 9.5 % (0.0-8.0) Prothrombin Time 17.9 SEC (9.8-11.6) Blood Urea Nitrogen 41 MG/DL (7-18) Creatinine 1.70 MG/DL (0.50-1.00) Random Glucose 122 MG/DL (74-106) Albumin 3.2 GM/DL (3.4-5.0) Calcium Level 8.1 MG/DL (8.5-10.1) Alkaline Phosphatase 41 U/L (45-117) Aspartate Amino Transf (AST/SGOT) 13 U/L (15-37) Chloride Level 109 MEQ/L (98-107) Estimat Glomerular Filtration Rate 29 ML/MIN (>89) PE at Discharge soft abd, nontender, ND, BS + Hospital Course Patient was admitted for sepsis secondary to colitis of unknown origin. She was eventually found to have C. difficile colitis, antibiotics were adjusted accordingly. Patient's leukocytosis had resolved. She was tolerating by mouth intake well with no further nausea vomiting or diarrhea. Patient has met maximum benefit from hospitalization and is clinically stable for discharge. Patient denied any urinary hesitancy frequency or burning or hematuria throughout her stay. She was informed that she might have urinary tract infection and that if she did we would contact her for further antibiotics which would then prolong her metronidazole course for her C. difficile. Patient was contacted after discharge informed that she did have a UTI, called in a script for macrobid 100 mg BID x 10 days - and that she would need to contact her primary care provider to extend coverage of her metronidazole. Pt Condition on Discharge: Stable Discharge Disposition: Discharge Home Discharge Time: > 30 minutes Discharge Instructions DIET: Follow Instructions for: Coumadin (Warfarin) Diet Activities you can perform: Weight Bearing as Jah Follow up Referrals: PCP Follow-up - 10 Days New Medications: Metronidazole (Metronidazole) 500 Mg Tab 500 MG PO TID for Infection for 14 Days, #42 TAB 0 Refills Promethazine (Promethazine) 12.5 Mg Tab 12.5 MG PO Q6H PRN for NAUSEA OR VOMITING, #20 TAB 0 Refills Continued Medications: Calcitriol (Calcitriol) 0.25 Mcg Cap 0.25 MCG PO DAILY for Calcium Supplement, #30 CAP 0 Refills Carvedilol (Coreg) 12.5 Mg Tab 25 MG PO BID for Blood Pressure Management, #62 TAB Cholecalciferol (Vitamin D3) 2,000 Unit Cap 2000 UNITS PO DAILY for Nutritional Supplement, #1 BOTTLE 0 Refills Furosemide (Furosemide) 20 Mg Tab 20 MG PO DAILY, #30 TAB 0 Refills Glyburide (Glyburide) 5 Mg Tab 5 MG PO DAILY for Blood Sugar Management, #30 TAB 0 Refills Take with meals at the same time each day Hydralazine HCl (Hydralazine HCl) 50 Mg Tablet 50 MG PO Q6HR for Blood Pressure Management, #120 TAB Losartan (Cozaar) 50 Mg Tab 100 MG PO DAILY for Blood Pressure Management, #30 TAB Metformin (Metformin) 500 Mg Tab 500 MG PO BIDPC for Blood Sugar Management, #60 TAB 0 Refills With meals Potassium Chloride ER (Potassium Chloride ER) 10 Meq Cap 10 MEQ PO DAILY for Electrolyte Replacement, #30 CAP 0 Refills Simvastatin (Zocor) 40 Mg Tab 40 MG PO DAILY for Cholesterol Management, #30 TAB 0 Refills Warfarin (Warfarin) 6 Mg Tab 6 MG PO ,,WED, for Blood Clot Prevention, #30 TAB 0 Refills Warfarin (Warfarin) 5 Mg Tab 5 MG PO , for Blood Clot Prevention, #30 TAB 0 Refills Patrick Echols MD Jan 18, 2017 12:25
[2017-01-18] MEDS ORDERED: WARFARIN SOD 2.5 MG TAB PO ONE (16:00)
[2017-01-20] MEDS ORDERED: WARFARIN SOD 6 MG TAB PO SCH (16:00)
== END 2017-01-18 14:54 | disposition home or self-care (01) | DRG 872 ==
LOC: PHED 21:48 → PHEDA 01-17 03:03 → PH3A 01-17 04:14
PROVIDERS: ADMIT Hospitalist; ATTEND Hospitalist
DX: A41.9 Sepsis, unspecified organism (principal); N17.9 Acute kidney failure, unspecified; A04.72 Enterocolitis due to Clostridium difficile, not specified as recurrent; E11.22 Type 2 diabetes mellitus with diabetic chronic kidney disease; K57.32 Diverticulitis of large intestine without perforation or abscess without bleeding; I13.0 Hypertensive heart and chronic kidney disease with heart failure and stage 1 through stage 4 chronic kidney disease, or unspecified chronic kidney disease; I50.32 Chronic diastolic (congestive) heart failure; I48.2 Chronic atrial fibrillation; N39.0 Urinary tract infection, site not specified; J44.9 Chronic obstructive pulmonary disease, unspecified; F41.9 Anxiety disorder, unspecified; I25.10 Atherosclerotic heart disease of native coronary artery without angina pectoris; B96.1 Klebsiella pneumoniae [K. pneumoniae] as the cause of diseases classified elsewhere; N18.3 Chronic kidney disease, stage 3 (moderate); Z87.891 Personal history of nicotine dependence; Z95.1 Presence of aortocoronary bypass graft; Z79.84 Long term (current) use of oral hypoglycemic drugs; Z95.0 Presence of cardiac pacemaker; Z79.01 Long term (current) use of anticoagulants
CPT/HCPCS: 74176; 80048; 80053; 81001; 82948; 83690; 83735; 85025; 85610; 85730; 87040; 87077; 87086; 87186; 87205; 87493; 87506; 96361; 96374; 96375; 99285; J1956; J2405; J2543; J7030